=== PATIENT | female | born 1990 | race African-American/Black ===

== ENCOUNTER 2020-02-01 06:27 | Emergency (ER) | payer BC ==
[~2020-02-01] VITALS: Ht 157.5 cm; Wt 59.0 kg
[2020-02-01 06:33] VITALS: BP 139/85
[2020-02-01] MEDS ORDERED: SODIUM CHLORIDE 0.9% 1,000 ML IV ONE (07:00)
[2020-02-01] MEDS ORDERED: ONDANSETRON HCL 4MG/2ML INJ IV ONE (07:00)
[2020-02-01 07:21] LABS: BASOPHILS % 0.4 % (0.0-2.0); EOSINOPHILS % 0.8 % (0.0-5.0); HEMATOCRIT. 37.8 % (36.0-48.0); HEMOGLOBIN. 12.7 g/dL (12.0-16.0); MEAN CORPUSCULAR HEMOGLOBIN 30.4 pg (28.0-32.0); MEAN CORPUSCULAR VOLUME 90.4 fL (81.0-99.0); MEAN PLATELET VOLUME 8.7 fl (7.4-10.4); MONOCYTES % 5.9 % (2.0-8.0); NEUTROPHILS % 71.9 % (40.0-76.0); PLATELET 298 x1000/uL (130-400); RED BLOOD CELL COUNT 4.19 mill/uL (4.2-5.4); RED CELL DISTRIBUTION WIDTH 12.9 % (11.6-14.6)
[2020-02-01 07:25] LABS: CHLORIDE 104 mEq/L (98-107)
[2020-02-01 07:48] LABS: B-HCG QUANTITATIVE 28893 mIU/mL (<3)
== END 2020-02-01 08:45 | disposition home or self-care (01) ==
LOC: ER 06:27
DX: O03.4 Incomplete spontaneous abortion without complication (principal); R03.0 Elevated blood-pressure reading, without diagnosis of hypertension
CPT/HCPCS: 36415; 76801; 76817; 80053; 84702; 85025; 86850; 86900; 86901; 93005; 99285; J2405; J7030